=== PATIENT | female | born 1980 | race Asian ===

== ENCOUNTER → 2019-06-29 | Day surgery (SDC) | payer OTHER ==
[~2019-06-29] MED LIST: FENTANYL CITRATE/PF 100MCG/2 ML INJ ONE; HYOSCYAMINE 0.125 MG TAB ONE; LEVOTHYROXINE88 MCG PO; LIDOCAINE HCL 2% LOCAL INJ 5 ML SDV VIAL INJ ONE; MIDAZOLAM HCL 2 MG/2 ML VIAL ONE; PROPOFOL IV EMULSION 10 MG/ML 50 ML VIAL ONE
--- OUTSIDE RECORDS SUMMARY | 2019-06-29 12:53 | XMS REPORT ---
Author Author [facility] Address Unknown Phone Unavailable Care Team Providers Care Special Education Classroom Aide Name Role Phone Unavailable Unavailable Payers Payer Name Policy Type Policy Number Effective Date Expiration Date Problems This patient has no known problems. Allergies, Adverse Reactions, Alerts Allergy Name Allergy Type Status Severity Reaction(s) Onset Date Inactive Date Treating Clinician Comments No Known Allergies DA Active U 2012-12-16 00:00:00 Medications This patient has no known medications.
[2019-06-29 19:32] LABS: WBC,FECAL (FECAL LACTOFERRIN) NEGATIVE (NEGATIVE)
--- NOTE | 2019-06-29 22:36 | Operative Report ---
DATE OF PROCEDURE: 06/29/2019 SURGEON: Raf Lawton MD PROCEDURE: Colonoscopy with biopsies INDICATIONS FOR PROCEDURE: Rectal bleeding, loose stools. MEDICATIONS: The patient was done under MAC, please see anesthesiologist's note. PROCEDURE IN DETAIL: With the patient in left lateral decubitus position, a flexible fiberoptic Olympus colonoscope was inserted into the rectum with ease and advanced all the way to the cecum. Mucosa overlying the cecum appeared to be within normal limits. The ileocecal valve was intubated and the scope was advanced into the terminal ileum. Biopsies were obtained. The scope was then withdrawn back into the colon. It was then withdrawn slowly. Mucosa overlying the ascending and the transverse appeared to be within normal limits. Mild patchy inflammatory changes were noted in the left colon and the rectum and random biopsies were obtained. The scope was then retroflexed into the distal rectum and small to moderate sized internal hemorrhoids were noted, none of which was actively bleeding. There was also hypertrophied anal papilla. The scope was then straightened out and it was subsequently withdrawn after securing an adequate stool specimen that was sent for the appropriate stool studies. The patient tolerated the procedure well. IMPRESSION: 1. Mild patchy left-sided colitis. 2. Proctitis, mild. 3. Internal hemorrhoids, none actively bleeding. 4. Hypertrophied anal papillae. PLAN: Follow up histology. Follow up stool studies. Initiate Visbiome 1 p.o. b.i.d. and Anucort-HC suppositories b.i.d. x10 days and p.r.n. Raf Lawton MD [facility] [place] [place] /[id number] cc: Cj Smiley MD
[2019-06-30 12:11] LABS: C DIFFICILE TOXIN A&B AMP PROB NEGATIVE (NEGATIVE)
== END | disposition home or self-care (01) ==
LOC: OR 12:51
PROVIDERS: ATTEND Internal Medicine Gastroenterology
DX: K62.5 Hemorrhage of anus and rectum (principal); K51.50 Left sided colitis without complications; E03.9 Hypothyroidism, unspecified; Z68.31 Body mass index [BMI] 31.0-31.9, adult; R19.5 Other fecal abnormalities; K62.89 Other specified diseases of anus and rectum; K64.8 Other hemorrhoids
CPT/HCPCS: 45380; 81025; 83630; 83993; 87045; 87177; 87328; 87493; J2001; J2250; J2704; J3010